=== PATIENT | male | born 1965 | race Caucasian/White ===

== ENCOUNTER → 2016-09-04 | Outpatient (CLI) | payer OTHER ==
[~2016-09-04] MED LIST: ANAS1TAB PO; ATOR10TA60 PO; BENZ100C2 PO; CALC-73 PO; CARB1TAB47 PO; CLOM50CA2 PO; CLON1TAB3 PO; CYCL10TA2 PO; DULO60CA44 PO; ESOM40CA PO; FENO48TA2 PO; FLUT15.88 NS; IOHEXOL 180 MG/ML 10 ML VIAL. IT ONE; LIDOCAINE 1% Multi-Dose 20 ML VIAL. ID ONE; LORA-782 PO; MELA10TA7 PO; MIDO5TAB PO; NABU750T PO; PROAIR HFA8.5 GM INH; PROP1TAB PO; TAMS0.4C2 PO; UBID200C27 PO; ZOLP12.54 PO
--- NOTE | 2016-09-04 12:29 | KCIC ---
PROCEDURE Lumbar myelogram. HISTORY Severe low back pain for 10 years with bilateral lower extremity weakness TECHNIQUE Patient was informed of the risks to include pain, infection, bleeding, nerve root injury, seizures, allergic reaction. Patient was informed of potential increased risk of bleeding and seizures due to recent medication. However patient wished to proceed with exam despite stated increased risks. All questions were answered. Patient signed a written consent form forlumbarmyelogram.The patient was placed in a prone oblique position on the fluoroscopy table. External skin site of the lower back was prepped and draped in the usual sterile fashion. Betadine was utilized for cleansing solution. 1 percent lidocaine was utilized for local anesthesia at the anticipated site of puncture of the right L3-4 interlaminar space. A guiding needle was advanced into the soft tissues. Through the guiding needle, a 25 Deena needle was advanced until return of cerebral spinal fluid.Fifteen cc [id number] injected during fluoroscopic visualization. [place] were removed. There were no immediate complications. Fluoroscopic spot images were acquired to include standing images of the lumbar spine. The patient was transferred to CT suite for CT examination of the lumbar spine. Fluoroscopy time, fluoroscopy images: Fifty-two seconds, 12 images FINDINGS There was no evidence of myelographic block. Thoracic spinal stimulator leads are noted. There is small anterior extradural defect at L4-5. There is hardware traversing the left sacroiliac joint. IMPRESSION There is small anterior extradural defect L4-5. Electronically signed by: Felix Foss MD (Sep 04, 2016 12:28:29)
--- NOTE | 2016-09-04 12:48 | KCIC ---
PROCEDURE Lumbar spine radiographs. HISTORY Severe low back pain for 10 years with bilateral lower extremity weakness FINDINGS Five views of lumbar spine to include neutral, flexion, and extension lateral radiographs are submitted. Surgical hardware traverses the left sacroiliac joint. There are thoracic spinal stimulator leads present. There are likely phleboliths in the right pelvis. Lumbar vertebral body stature is adequate. Vertebral body AP alignment does not significantly change with flexion or extension. There is negligible posterior subluxation L4 relative to L5. IMPRESSION AP alignment does not significantly change with flexion or extension. There is negligible posterior subluxation L4 relative to L5. Electronically signed by: Felix Foss MD (Sep 04, 2016 12:47:28)
--- NOTE | 2016-09-04 13:44 | KCIC ---
PROCEDURE CT lumbar spine exam HISTORY Lumbar radiculopathy, severe low back pain with bilateral radiculopathy and weakness for [address] imaging was performed of the lumbar spine after injection for the lumbar myelogram, multiplanar reconstruction images submitted. Exposure: One or more of the following individualized dose reduction techniques were utilized for this exam: 1. Automated exposure control. 2. Adjustment of the mA and/or kV according to patient size. 3. Use of iterative reconstruction technique. COMPARISON April 04, 2013 FINDINGS Lumbar vertebral body stature is unchanged, within normal limits. There is again negligible posterior subluxation L5 relative to S1. Intervertebral disc spaces are relatively preserved. Conus terminates at superior aspect of L2. There are thoracic spinal stimulator leads, superior extent not included on this exam. T12-L1 to L3-4: Spinal canal and neural foramina remain adequate. L4-5: There is again moderate facet degenerative change, minimal buckling of the ligamentum flavum. There is similar minimal narrowing of the neural foramina greater on the left. Spinal canal is adequate. There is now shallow density extending below the intervertebral disc space centrally, possibly due to very minimal extrusion without neural impingement. L5-S1: There is again moderate facet hypertrophic change. There is again negligible disc osteophyte complex. There is no significant displacement of the descending S1 nerve roots. There is again moderate to severe neural foramina compromise greater on the left, effacement of perineural fat surrounding exiting L5 nerve roots. Narrowing is due to facet hypertrophic change and disc osteophyte complex. There are again 3 metallic devices traversing the left sacroiliac joint. There is again spina bifida occulta of S1. IMPRESSION 1. There is a very shallow extrusion extending below the L4-5 intervertebral disc space centrally without new neural impingement or spinal stenosis. Otherwise findings are similar compared with 2013 exam. There is bilateral L5-S1 neural foramina compromise due to disc osteophyte complex and facet hypertrophic change. There is no new significant lumbar spinal stenosis. Electronically signed by: Felix Foss MD (Sep 04, 2016 13:43:37)
== END | disposition home or self-care (01) ==
LOC: KCIC 09:02
PROVIDERS: ATTEND Neurological Surgery
DX: M54.16 Radiculopathy, lumbar region (principal); M62.81 Muscle weakness (generalized); M53.1 Cervicobrachial syndrome
CPT/HCPCS: 72110; 72132; 72265

== ENCOUNTER → 2017-04-14 | Outpatient (CLI) | payer OTHER ==
[~2017-04-14] MED LIST changes: +BENZ100C15 PO; -BENZ100C2 PO; -IOHEXOL 180 MG/ML 10 ML VIAL. IT ONE; -LIDOCAINE 1% Multi-Dose 20 ML VIAL. ID ONE
--- NOTE | 2017-04-14 14:22 | KCIC ---
CT left hip without contrast dated 04/14/2017 1:30 PM Indication: Left hip pain, stiffness, pain for one year. Comparison: No comparison is available. Technique: Contiguous axial imaging of the left hip performed. Thin cut coronal and sagittal reconstructions. No contrast administered. One or more of the following individualized dose reduction techniques were utilized for this examination: 1. Automated exposure control 2. Adjustment of the mA and/or kV according to patient size 3. Use of iterative reconstruction technique Findings: Bony alignment is anatomic. No displaced fracture. No periostitis or bone destruction. No significant hypertrophic changes. No apparent joint effusion or loose body. Metallic pins traverse the left SI joint. Mild hypertrophic changes of the lower portion of the left SI joint with partial fusion. No erosive changes are seen. Visualized soft tissue structures unremarkable. Limited imaged portions of the pelvis show no significant abnormality. IMPRESSION: 1. No acute bony or soft tissue abnormality left hip. 2. Postsurgical changes at the left SI joint. Electronically signed by: Isidoro Rodriguez MD (04/14/2017 2:19 PM) [email or web address]
== END | disposition home or self-care (01) ==
LOC: KCIC CT 13:17
PROVIDERS: ATTEND Physical Medicine & Rehabilitation Sports Medicine
DX: M25.552 Pain in left hip (principal); R45.851 Suicidal ideations
CPT/HCPCS: 73700